=== PATIENT | male | born 1960 ===

== ENCOUNTER 2017-04-15 15:35 | Emergency (ER) | payer BC ==
[2017-04-15 16:13] VITALS: BP 109/54; PULSE 87; RESP 20; TEMP 99.1; O2SAT 99
[2017-04-15] MEDS ORDERED: Sodium Chloride 0.9% 1,000 ML IV STA (17:31)
--- NOTE | 2017-04-15 17:56 | ED PDOC ---
HPI: Back Time Seen by Provider: 04/15/17 16:41 Chief Complaint (Nursing): Back Pain Chief Complaint (Provider): Back Pain History Per: Patient Additional Complaint(s): 56 yo male, no PMH, presents to ED with complaints of lt. sided lower back/ flank pain radiating to his abdomen x 4 days. also c/o burning with urination and dark urine. denies any fever. states pain radiates down into lt. leg. Past Medical History Reviewed: Nursing Documentation, Vital Signs Vital Signs: Last Vital Signs Temp 99.1 F 04/15/17 16:08 Pulse 87 04/15/17 16:08 Resp 20 04/15/17 16:08 BP 109/54 L 04/15/17 16:08 Pulse Ox 99 04/15/17 16:08 - Medical History PMH: No Chronic Diseases - Surgical History Surgical History: No Surg Hx - Family History Family History: States: No Known Family Hx - Living Arrangements Living Arrangements: With Family - Social History Current smoker - smoking cessation education provided: No Alcohol: Social Drugs: Denies - Allergies Allergies/Adverse Reactions: Allergies Allergy/AdvReac Type Severity Reaction Status Date / Time Iodine and Iodide Containing Allergy ANAPHYLAXIS Verified 04/15/17 16:08 Produc Review of Systems ROS Statement: Except As Marked, All Systems Reviewed And Found Negative Gastrointestinal: Positive for: Abdominal Pain Physical Exam - Reviewed Nursing Documentation Reviewed: Yes Vital Signs Reviewed: Yes - Physical Exam Appears: Positive for: Non-toxic, No Acute Distress, Uncomfortable Head Exam: Positive for: ATRAUMATIC, NORMAL INSPECTION, NORMOCEPHALIC Skin: Positive for: Normal Color, Warm, DRY Eye Exam: Positive for: EOMI, Normal appearance, PERRL ENT: Positive for: Normal ENT Inspection Neck: Positive for: Normal, Painless ROM Cardiovascular/Chest: Positive for: Regular Rate, Rhythm Respiratory: Positive for: CNT, Normal Breath Sounds Gastrointestinal/Abdominal: Positive for: Bowel Sounds, Soft, Tenderness (Left flank) Back: Positive for: Normal Inspection, L CVA Tenderness Extremity: Positive for: Normal ROM Neurologic/Psych: Positive for: Alert, Oriented - Laboratory Results Result Diagrams: 04/15/17 17:45 04/15/17 17:45 - ECG O2 Sat by Pulse Oximetry: 99 Medical Decision Making Medical Decision Making: IV access established and treatment initiated with IVF and Toradol Diagnostics ordered CBC and COMP resulted WNL UA and CT pending at 19:45 20:00 case endorsed to ARPITA [place] pending diagnostic review and re-eval Disposition - Clinical Impression Clinical Impression: Flank pain - Patient ED Disposition Is Patient to be Admitted: No - Disposition Disposition: Transfer of Care ([facility]) Disposition Time: 19:44 Condition: STABLE - POA Present On Arrival: None
[2017-04-15 18:20] LABS: BASO % 0.7 % (0.0-2.0); EOS % 0.8 % (0.0-4.0); HEMATOCRIT 45.3 % (35.0-51.0); LYMPH # 1.8 K/uL (1.0-4.3); MEAN CELL VOLUME 93.2 fl (80.0-94.0); MEAN CORPUSCULAR HEMOGLOBIN 30.7 pg (27.0-31.0); MEAN CORPUSCULAR HGB CONC 32.9 g/dL (33.0-37.0); MEAN PLATELET VOLUME 10.2 fl (7.2-11.7); MONO # 0.9 K/uL (0.0-0.8); MONO % 14.6 % (0.0-10.0); NEUT # 3.2 K/uL (1.8-7.0); NEUT % 53.9 % (50.0-75.0); NRBC % 0.1 % (0.0-0.0); RED CELL DISTRIBUTION WIDTH 13.5 % (11.5-14.5); WHITE BLOOD COUNT 5.9 K/uL (4.8-10.8)
[2017-04-15 18:58] LABS: ALB/GLOB RATIO 1.6 (1.0-2.1); ALKALINE PHOSPHATASE 71 U/L (38-126); ALT/SGPT 35 U/L (21-72); AST/SGOT 20 U/L (17-59); BILIRUBIN,TOTAL 0.4 mg/dl (0.2-1.3); BLOOD UREA NITROGEN 16 mg/dl (9-20); CALCIUM 9.8 mg/dL (8.4-10.2); CARBON DIOXIDE 30 mmol/L (22-30); CHLORIDE 102 mmol/L (98-107); GFR AFRICAN-AMERICAN > 60; GLUCOSE,RANDOM 127 mg/dL (75-110); POTASSIUM 4.5 MMOL/L (3.6-5.0); SODIUM 141 mmol/l (132-148); TOTAL PROTEIN 7.4 G/DL (6.3-8.2)
--- NOTE | 2017-04-15 20:49 | ED PDOC ---
- Laboratory Results Result Diagrams: 04/15/17 17:45 04/15/17 17:45 - ECG O2 Sat by Pulse Oximetry: 99 - Progress ED Course And Treament: Case endorsed to typewriter operator automatic from [facility] PALM pending urine, CT EXAM: CT Abdomen and Pelvis Without Intravenous Contrast CLINICAL HISTORY: 56 years old, male; Pain; Abdominal pain; Flank; Left; Additional info: R/O renal stone TECHNIQUE: Axial computed tomography images of the abdomen and pelvis without intravenous contrast. This CT exam was performed using one or more of the following dose reduction techniques: automated exposure control, adjustment of the mA and/or kV according to patient size, and/ or use of iterative reconstruction technique. Coronal and sagittal reformatted images were created and reviewed. EXAM DATE/TIME: 04/15/2017 5:31 PM COMPARISON: No relevant prior studies available. FINDINGS: Lower thorax: No acute findings. ABDOMEN: Liver: The liver is unremarkable. Gallbladder and bile ducts: The gallbladder is unremarkable. No biliary ductal dilatation. Pancreas: The pancreas is unremarkable. Spleen: The spleen is unremarkable. Adrenals: The adrenal glands are unremarkable. Kidneys and ureters: Nonobstructing 3 mm right renal stone. Punctate nonobstructing left renal stone. No hydronephrosis. Stomach and bowel: No evidence of bowel obstruction. No pericolonic inflammatory stranding. Appendix: A normal appendix is identified. PELVIS: Bladder: Urinary bladder is decompressed and not well evaluated. Reproductive: Unremarkable as visualized. ABDOMEN and PELVIS: Intraperitoneal space: Small amount of free fluid noted in the pelvis, which is a nonspecific abnormal finding in a male, and suggests an early acute inflammatory process of indeterminate etiology. Bones/joints: No acute osseous abnormality. Soft tissues: There is a small fat-containing umbilical hernia. Vasculature: Significantly limited assessment of the vasculature without contrast. No aortic aneurysm. Lymph nodes: No enlarged lymph nodes. IMPRESSION: 1. Small amount of free fluid noted in the pelvis, which is a nonspecific abnormal finding in a male, and suggests an early acute inflammatory process of indeterminate etiology. No localizing findings, however. 2. Nonobstructing bilateral renal stones. Patient requesting typewriter operator automatic to look in left ear; states 5 days ago accidentally pushed a Qtip too far in his ear while cleaning, saw some drainage afterwards and has been having pain/clogged feeling since. Left ear showed + ruptured TM. right TM clear. EACs clear b/l Patient educated on all findings, discharged with rx Ofloxacin. Advised follow up PMD 2-3 days. Follow up ENT. Ibuprofen PRN pain. Return to ED for worsening/concerning symptoms. Disposition - Clinical Impression Clinical Impression: Flank pain, Eardrum rupture, left - POA Present On Arrival: None - Disposition Referrals: Kevin Nichols MD [Staff Provider] - Disposition: Routine/Home Disposition Time: 22:53 Condition: IMPROVED Prescriptions: Ofloxacin Otic 0.3% [Floxin 0.3% Otic Soln] 3 drop OT DAILY #1 bottle Instructions: Ruptured Eardrum (ED), Flank Pain (ED) Print Language: INDIAN
[2017-04-15 22:10] LABS: RBC URINE 5 /hpf (0-3); URINE BACTERIA RARE (<OCC); URINE BILIRUBIN NEGATIVE (NEGATIVE); URINE BLOOD NEGATIVE (NEGATIVE); URINE COLOR YELLOW (YELLOW); URINE GLUCOSE (UA) NEG (Normal); URINE KETONE NEGATIVE (NEGATIVE); URINE LEUKOCYTE ESTERASE NEG Leu/uL (Negative); URINE PROTEIN NEGATIVE (NEGATIVE); URINE UROBILINOGEN 0.2-1.0 mg/dL (0.2-1.0); WBC URINE 2 /hpf (0-5)
--- NOTE | 2017-04-16 10:20 | CT ---
PROCEDURE: CT Abdomen and pelvis dated 04/15/2017. HISTORY: r/o renal stone COMPARISON: No prior studies available for comparison TECHNIQUE: Contiguous axial images of the abdomen and pelvis performed without oral or intravenous contrast material. . Coronal and Sagittal reformats generated. Radiation dose: Total exam DLP = 471.23 mGy-cm. This CT exam was performed using one or more of the following dose reduction techniques: Automated exposure control, adjustment of the mA and/or kV according to patient size, and/or use of iterative reconstruction technique. FINDINGS: LOWER THORAX: Lung bases clear. No infiltrate effusion or basilar pneumothorax. Heart size within range of normal. No significant pericardial effusion. LIVER: Liver is upper limits of normal measuring nearly 18 cm in CC dimension. No obvious hepatic mass collection or calcification. GALLBLADDER AND BILE DUCTS: Gallbladder is incompletely distended which may account for prominent gallbladder wall. No evidence of intraluminal gallbladder calculi. PANCREAS: Visualized portions of the pancreas appear grossly unremarkable so far as can be seen the though study is somewhat limited due to the lack of oral and intravenous contrast. Studies for further slightly limited by the relative paucity of retroperitoneal and intraperitoneal fat. SPLEEN: Spleen exhibits normal size and attenuation pattern without mass collection or calcification. ADRENALS: No adrenal lesions. KIDNEYS AND URETERS: The kidneys exhibit relatively symmetric size. Small approximately 3 mm calculus within the lower pole right kidney BLADDER: Urinary bladder is incompletely distended which presumably accounts for thick-walled appearance mid. Muscular hypertrophy may contribute. Possibility of cystitis or other intrinsic/ invasive wall lesion not excluded. Multiple small calcifications are present within the pelvis likely representing calcified pelvic phleboliths. Small calcific density abuts the right posterolateral margin of the urinary bladder however this appears to be extrinsic to the urinary bladder itself no definitive intraluminal urinary bladder calculi. REPRODUCTIVE: Prostate gland appears mildly enlarged measuring approximately 4.5 cm in transverse dimension. Seminal vesicles unremarkable. APPENDIX: No definitive evidence of acute appendicitis however the appendix is not seen with complete certainty. BOWEL: Evaluation of the bowel is limited due to the lack of oral contrast material. Stomach is incompletely distended which presumably accounts for slight thick-walled appearance. Gastritis or other intrinsic/ wall lesion not excluded. The visualized loops of small bowel exhibit normal contour and caliber. No evidence of acute mechanical small bowel obstruction. Large amount of stool is seen within the cecum and at ascending colon consistent with constipation. PERITONEUM: . Questionable small amount of free fluid in the pelvis. No free air. Tiny fat containing umbilical hernia. LYMPH NODES: Unremarkable. No enlarged lymph nodes. VASCULATURE: Unremarkable. No aortic aneurysm. BONES: The very minor degenerative spondylosis of the lumbar spine. There are no acute compression fractures no retropulsed fragments. OTHER FINDINGS: None. IMPRESSION: Borderline hepatomegaly. Small calcification lower pole right kidney. Questionable small amount of free fluid in the pelvis
== END 2017-04-15 23:07 | disposition home or self-care (01) ==
LOC: H.ER 15:35
DX: R10.9 Unspecified abdominal pain (principal); H72.92 Unspecified perforation of tympanic membrane, left ear; N20.0 Calculus of kidney; R16.0 Hepatomegaly, not elsewhere classified
CPT/HCPCS: 74176; 80053; 81003; 85025; 96374; 99282; J1885; J7040

== ENCOUNTER 2017-07-20 12:57 | Emergency (ER) | payer BC ==
[2017-07-20 13:09] VITALS: BP 108/67; PULSE 86; RESP 18; TEMP 98.2; O2SAT 100
--- NOTE | 2017-07-20 14:24 | ED PDOC ---
HPI: General Adult Time Seen by Provider: 07/20/17 13:51 Chief Complaint (Nursing): Weakness/Neurological Deficit Chief Complaint (Provider): numbness History Per: Patient History/Exam Limitations: no limitations Additional Complaint(s): 56yo M in ED c/o of right arm numbness states that he noted numbness to fingers thumb and index x10d noted after waking up however this AM noted numbness to finger/thumb radiating upward to forearm. negative for: weakness, numbness else in body, acute injury, change in speech, gait, memory thought process. Pt denies hx of CVA. denies CP, SOB. Past Medical History Reviewed: Historical Data, Nursing Documentation, Vital Signs Vital Signs: Last Vital Signs Temp 98.2 F 07/20/17 13:05 Pulse 86 07/20/17 13:05 Resp 18 07/20/17 13:05 BP 108/67 07/20/17 13:05 Pulse Ox 100 07/20/17 14:27 - Family History Family History: States: No Known Family Hx - Home Medications Home Medications: Ambulatory Orders Medication Instructions Recorded Ofloxacin Otic 0.3% [Floxin 0.3% 3 drop OT DAILY #1 bottle 04/15/17 Otic Soln] - Allergies Allergies/Adverse Reactions: Allergies Allergy/AdvReac Type Severity Reaction Status Date / Time Iodine and Iodide Containing Allergy ANAPHYLAXIS Verified 07/20/17 13:03 Produc lactose Allergy ANAPHYLAXIS Verified 07/20/17 13:03 Review of Systems ROS Statement: Except As Marked, All Systems Reviewed And Found Negative Musculoskeletal: Positive for: Arm Pain Skin: Negative for: Rash Physical Exam - Reviewed Nursing Documentation Reviewed: Yes Vital Signs Reviewed: Yes - Physical Exam Appears: Positive for: Well, Non-toxic, No Acute Distress Head Exam: Positive for: ATRAUMATIC, NORMAL INSPECTION, NORMOCEPHALIC Skin: Positive for: Normal Color, Warm, DRY Eye Exam: Positive for: Normal appearance Cardiovascular/Chest: Positive for: Regular Rate, Rhythm Respiratory: Positive for: CNT, Normal Breath Sounds Back: Positive for: Normal Inspection Extremity: Positive for: Normal ROM, Other (right UE: nuerovac intact. pulses equal b/l, nuero exam equal b/l, good strength and tone. no defomirty. axillary nerve intact. sensoary nerve intact. no lesions noted. ) Neurologic/Psych: Positive for: Alert, superintendent sanitation II-XII (intact), Oriented, Cerebellar Tests (intact), Gait (stable), Other (MME: normal. ). Negative for: Motor/Sensory Deficits, Aphasia, Facial Droop - Laboratory Results Result Diagrams: 07/20/17 14:27 07/20/17 14:27 - ECG O2 Sat by Pulse Oximetry: 100 - Progress ED Course And Treament: low likelihood of CVA at thsi time. Pt most likely with a radial nerve injury. will be put in a splint however will do cbc/.cmp/mag to asses for electrolyte abnormality Medical Decision Making Medical Decision Making: unremarkable labs noted. Pt given sling to rest arm and help nerve recovery. advised to f.u with pmd. and i needed Ptx Disposition - Clinical Impression Clinical Impression: Radial nerve injury - Patient ED Disposition Is Patient to be Admitted: No Counseled Patient/Family Regarding: Studies Performed, Diagnosis, Need For Followup - Disposition Disposition: Routine/Home Disposition Time: 15:01 Condition: STABLE Instructions: Radial Nerve Palsy (ED) Forms: [employer] (Bengali)
[2017-07-20 14:39] LABS: BASO % 0.7 % (0.0-2.0); EOS % 0.8 % (0.0-4.0); HEMATOCRIT 46.2 % (35.0-51.0); LYMPH # 1.2 K/uL (1.0-4.3); LYMPH % 19.5 % (20.0-40.0); MEAN CELL VOLUME 92.4 fl (80.0-94.0); MEAN CORPUSCULAR HEMOGLOBIN 30.4 pg (27.0-31.0); MEAN CORPUSCULAR HGB CONC 32.9 g/dL (33.0-37.0); MEAN PLATELET VOLUME 9.5 fl (7.2-11.7); MONO # 0.7 K/uL (0.0-0.8); MONO % 12.4 % (0.0-10.0); NEUT % 66.6 % (50.0-75.0); NRBC % 0.1 % (0.0-0.0); RED CELL DISTRIBUTION WIDTH 12.8 % (11.5-14.5)
[2017-07-20 14:50] LABS: ALB/GLOB RATIO 1.6 (1.0-2.1); ALKALINE PHOSPHATASE 74 U/L (38-126); ALT/SGPT 44 U/L (21-72); AST/SGOT 24 U/L (17-59); BILIRUBIN,TOTAL 0.8 mg/dl (0.2-1.3); BLOOD UREA NITROGEN 24 mg/dl (9-20); CALCIUM 9.6 mg/dL (8.4-10.2); CARBON DIOXIDE 29 mmol/L (22-30); CHLORIDE 103 mmol/L (98-107); GFR AFRICAN-AMERICAN > 60; GLUCOSE,RANDOM 109 mg/dL (75-110); MAGNESIUM 2.1 MG/DL (1.6-2.3); POTASSIUM 4.9 MMOL/L (3.6-5.0); SODIUM 140 mmol/l (132-148); TOTAL PROTEIN 7.4 G/DL (6.3-8.2)
[2017-07-20 14:51] LABS: RBC URINE 9 /hpf (0-3); URINE BILIRUBIN NEGATIVE (NEGATIVE); URINE BLOOD SMALL (NEGATIVE); URINE COLOR YELLOW (YELLOW); URINE GLUCOSE (UA) NEG (Normal); URINE KETONE NEGATIVE (NEGATIVE); URINE LEUKOCYTE ESTERASE NEG Leu/uL (Negative); URINE PROTEIN NEGATIVE (NEGATIVE); URINE UROBILINOGEN 0.2-1.0 mg/dL (0.2-1.0); WBC URINE 1 /hpf (0-5)
== END 2017-07-20 15:10 | disposition home or self-care (01) ==
LOC: H.ER 12:57
DX: G56.30 Lesion of radial nerve, unspecified upper limb (principal); R20.2 Paresthesia of skin